=== PATIENT | female | born 1975 | race Caucasian/White ===

== ENCOUNTER → 2016-07-11 | Outpatient (CLI) | payer OTHER ==
[~2016-07-11] MED LIST: ACET-1256 PO; CLC100 PO; OPTIRAY 320 IV PRN; PRENTAB26 PO; TGM300 PO
--- NOTE | 2016-07-11 17:04 | DIAGNOSTIC IMAGING REPORT ---
CHEST CTA for PULMONARY ARTERIES CT DOSE: 469.60 mGy.cm HISTORY: Dyspnea POSITIVE D Dimer, chest PAIN TECHNIQUE: Multiaxial CT images of the chest were performed following the intravenous administration of contrast to evaluate the pulmonary arteries. Maximal intensity projection images were also obtained. COMPARISON STUDY: None. FINDINGS: No evidence of pulmonary embolus. Thoracic aorta is normal in course and caliber. Lungs are considered clear. The left millimeter left axillary node. There are several shotty extra nodes bilaterally. There is no significant mediastinal or hilar adenopathy. IMPRESSION: 1. Study is negative for pulmonary embolus. 2. Lungs are clear. Electronically signed by: Radames Otero M.D. 07/11/2016 5:02 PM Dictated Date/Time: 07/11/2016 5:00 PM
== END | disposition home or self-care (01) ==
LOC: C.CTS 16:24
PROVIDERS: ATTEND Family Medicine
DX: R79.1 Abnormal coagulation profile (principal); R07.9 Chest pain, unspecified